=== PATIENT | female | born 2000 | race Two or more races ===

== ENCOUNTER 2024-02-12 13:45 | Observation (INO) ==
[2024-02-12 17:30] LABS: ABS Lymphocytes 1.1 10^3/uL (1.0-4.8); ABS Monocytes 0.8 10^3/uL (0.0-0.9); ABS Neutrophils 12.8 10^3/uL (1.5-7.6); Hematocrit 34.7 % (35-45); Hemoglobin 11.3 g/dL (11.5-14.3); Lymphocyte % 7.4 %; Mean Corpuscular Hgb Conc 32.6 g/dL (31-36); Mean Corpuscular Volume 79.6 fL (80-97); Mean Platelet Volume 8.6 fL (7.5-11.2); Platelet Count 322 10^3/uL (150-450); Red Blood Count 4.36 10^6/uL (3.63-4.92); Red Cell Distribution Width 14.3 % (12-17); White Blood Count 14.7 10^3/uL (3.8-11.8)
[2024-02-12 17:43] LABS: High Sens Troponin Baseline < 3 pg/mL (<15)
[2024-02-12 18:07] LABS: ALT 12 U/L (7-52); AST 17 U/L (13-39); Albumin/Globulin Ratio 1.1 (1-3); Alkaline Phosphatase 60 U/L (35-149); Anion Gap 11 mmol/L (2-16); Blood Urea Nitrogen 8 mg/dL (6-24); CO2 Carbon Dioxide 25 mmol/L (22-32); Calcium 8.8 mg/dL (8.6-10.3); Chloride 99 mmol/L (101-111); Creatinine, Serum 0.74 mg/dL (0.51-0.95); Globulin 3.5 g/dL (2-4); Glucose 88 mg/dL (70-100); Magnesium 1.6 mg/dL (1.9-2.7); Potassium 3.8 mmol/L (3.5-5.0); Sodium 135 mmol/L (135-145); Total Bilirubin 0.4 mg/dL (0.2-1.0); Total Protein 7.5 g/dL (6.4-8.9)
[2024-02-12 18:14] LABS: HCG Pregnancy < 0.60 mIU/mL
[2024-02-12 18:22] LABS: TSH Ultra Thyroid Stim Horm 0.29 mcIU/mL (0.34-5.60)
[2024-02-12 19:07] LABS: High Sensitivity Troponin 1 Hr 3 pg/mL (<15)
[2024-02-12] MEDS: Clindamycin 600 MG/D5W BAG 600 MG/50 ML BAG IV ONE (19:53)
[2024-02-12] MEDS: Lactated Ringers 1000 ml BAG 1,000 ML IV ONE ×3 (19:54→23:38)
[2024-02-12] MEDS: Acetaminophen IV 1 GM/100ML 1,000 MG/100 ML BAG IV ONE (21:44)
[2024-02-12 21:54] LABS: Urine Appearance Clear; Urine Bilirubin Negative (Negative); Urine Blood Negative (Negative); Urine Color Light-Yellow; Urine Glucose Negative (Negative); Urine Ketones Negative (Negative); Urine Nitrite Negative (Negative); Urine Protein Negative (Negative); Urine Specific Gravity 1.009 (1.002-1.030); Urine Urobilinogen Negative (Negative)
[2024-02-12 22:27] LABS: RBC Parasite Smear No Parasites Seen (No Parasite)
[2024-02-12 23:13] LABS: C Reactive Protein 60.96 mg/L (<8.01)
[2024-02-13] MEDS ORDERED: Vancomycin per Pharmacy 1 EA NOTE FOLLOW UP PRN (00:41)
[2024-02-13] MEDS: Vancomycin 1,000 MG in NS 0.9% 250 ml 250 ML IVPB ONE (01:43)
[2024-02-13] MEDS: Lactated Ringers 1000 ml BAG 1,000 ML IV ONE (06:36)
[2024-02-13 07:26] LABS: ABS Lymphocytes 1.8 10^3/uL (1.0-4.8); ABS Monocytes 0.7 10^3/uL (0.0-0.9); ABS Neutrophils 5.1 10^3/uL (1.5-7.6); Eosinophil % 0.1 %; Hematocrit 39.3 % (35-45); Hemoglobin 13.1 g/dL (11.5-14.3); Lymphocyte % 23.1 %; Mean Corpuscular Hemoglobin 26.6 pg (27-33); Mean Corpuscular Hgb Conc 33.4 g/dL (31-36); Mean Corpuscular Volume 79.7 fL (80-97); Mean Platelet Volume 8.3 fL (7.5-11.2); Platelet Count 307 10^3/uL (150-450); Red Blood Count 4.93 10^6/uL (3.63-4.92); Red Cell Distribution Width 14.5 % (12-17); White Blood Count 7.6 10^3/uL (3.8-11.8)
[2024-02-13] MEDS: Vancomycin 750 MG in NS 0.9% 250 ML IVPB SCH (08:11)
[2024-02-13 08:17] LABS: Anion Gap 8 mmol/L (2-16); Blood Urea Nitrogen 6 mg/dL (6-24); CO2 Carbon Dioxide 25 mmol/L (22-32); Calcium 8.7 mg/dL (8.6-10.3); Chloride 106 mmol/L (101-111); Creatinine, Serum 0.57 mg/dL (0.51-0.95); Glucose 82 mg/dL (70-100); Magnesium 1.7 mg/dL (1.9-2.7); Sodium 139 mmol/L (135-145); eGFR CKD-EPI 132.5 (>60)
[2024-02-13] MEDS: Magnesium Sulfate 2 gm BAG 2 GM/50 ML BAG IVPB ONE (09:54)
[2024-02-14] MEDS ORDERED: Vancomycin Trough Check NOTE FOLLOW UP ONE (08:30)
[2024-02-14] MEDS ORDERED: Vancomycin per Pharmacy 1 EA NOTE FOLLOW UP PRN (08:30)
[2024-02-14 09:22] LABS: Hematocrit 34.5 % (35-45); Hemoglobin 11.4 g/dL (11.5-14.3); Mean Corpuscular Hemoglobin 26.2 pg (27-33); Mean Corpuscular Hgb Conc 32.9 g/dL (31-36); Mean Corpuscular Volume 79.6 fL (80-97); Mean Platelet Volume 8.6 fL (7.5-11.2); Platelet Count 316 10^3/uL (150-450); Red Blood Count 4.33 10^6/uL (3.63-4.92); Red Cell Distribution Width 14.7 % (12-17); White Blood Count 6.7 10^3/uL (3.8-11.8)
[2024-02-14 09:35] LABS: Creatinine, Serum 0.6 mg/dL (0.51-0.95); eGFR CKD-EPI 130.9 (>60)
[2024-02-14 09:36] LABS: Creatinine, Serum 0.6 mg/dL (0.51-0.95); Magnesium 1.8 mg/dL (1.9-2.7); eGFR CKD-EPI 130.9 (>60)
[2024-02-14 09:53] LABS: Free T3 2.86 pg/mL (2.5-3.9)
[2024-02-14] MEDS ORDERED: Ondansetron 4 mg VIAL 2 MG/ML 2 ml VIAL IV PRN (10:10)
[2024-02-14 10:21] VITALS: BP 115/76
[2024-02-14] MEDS: Magnesium Sulfate 2 gm BAG 2 GM/50 ML BAG IVPB ONE (10:28)
[2024-02-15 14:29] LABS: Anaplasma phagocytophilum Negative (Negative); B. miyamotoi PCR, B Negative (Negative); Babesia divergens/MO-1 Negative (Negative); Babesia ducani Negative (Negative); Ehrlichia chaffeensis Negative (Negative); Ehrlichia ewingii/canis Negative (Negative); Ehrlichia muris eauclairensis Negative (Negative)
[2024-02-16 15:11] LABS: Spotted Fever Group IgG Ab, S <1:64 (<1:64); Spotted Fever Group IgM Ab, S <1:64 (<1:64)
== END 2024-02-14 13:55 | disposition home or self-care (01) ==
LOC: EDHOLD 13:45 → ED 13:45 → SUATTDRO 22:32 → MEDTELE 02-13 12:25
PROVIDERS: ADMIT Internal Medicine; ATTEND Hospitalist